=== PATIENT | male | born 1970 | race Caucasian/White ===

== ENCOUNTER 2018-09-13 00:58 | Emergency (ER) | payer OTHER, MEDICAID, SELFPAY ==
[2018-09-13 01:10] VITALS: BP 170/75; PULSE 90; RESP 18; TEMP 36.9; O2SAT 99; BMI 29.9
--- NOTE | 2018-09-13 01:28 | ED_ITS ---
HPI - Extremity Injury (Lower) General Chief Complaint: Wound/Laceration Stated Complaint: right leg roge, 7 in long, inch deep Time Seen by Provider: 09/13/18 01:22 Source: patient Mode of arrival: ambulatory Limitations: no limitations History of Present Illness HPI Narrative: Patient is a 47-year-old male here for evaluation of a cut to his right lower extremity. Patient states that it occurred approximately 4 hr prior to arrival here in the emergency department. He states that he was trying to hang a ceiling light when it fell in the corner of that cut his right leg. He states that his last tetanus shot was 5 years ago. He states that the reason he is here for 4 hr after the event was because he went to another hospital and sat there waiting room for 3 hr and got tired of waiting so left that emergency department came here. Review of Systems Musculoskeletal Denies myalgias and Denies arthralgias Integumentary/Breasts Comments: Cut to the right lower extremity Neurologic Comments: No numbness or tingling right lower extremity Hematologic/Lymphatic Denies easy bleeding and Denies easy bruising FOR[facility]LY [facility] Medical History Drug abuse (Acute) Surgical History No pertinent past surgical history (Acute) Exam Initial Vital Signs Initial Vital Signs: Vital Signs Temperature 98.5 F 09/13/18 01:10 Pulse Rate 90 09/13/18 01:10 Respiratory Rate 18 09/13/18 01:10 Blood Pressure 170/75 H 09/13/18 01:10 Pulse Oximetry 99 09/13/18 01:10 Const General: cooperative, healthy appearing, comfortable, well developed, well groomed and No acute distress Orientation: alert, awake and oriented x3 Resp Effort & Inspection: normal respiratory effort Cardio Rate: regular rate Pulses: dorsalis pedis present on the right Skin Other: Patient with a 10 cm laceration to the right lateral aspect of his lower extremity distal to the knee. No active bleeding. Neuro Other: Sensation intact to light touch right lower extremity Extrem Other: Right knee right ankle right foot unremarkable Psych Appearance: grossly normal and well kempt Procedures Laceration Repair Laceration 1: Site: lower extremity Side (If applicable): right Size (cm): 10 Description: linear Depth: involves muscle layer Local Anesthetic: lidocaine 1% and with epi Amount of anesthesia used (mL): 12 Pre-repair: wound explored and irrigated extensively Skin layer closed with: nylon Size (cm): 4-0 Number of sutures: 13 Technique: simple, interrupted Muscle layer closed with: chromic gut Size: 5-0 Number of sutures: 1 Technique: running Course Vital Signs - 8 hr 09/13/18 01:10 09/13/18 03:01 Temperature 98.5 F Pulse Rate 90 77 Respiratory Rate 18 18 Blood Pressure 170/75 H 134/81 Pulse Oximetry 99 98 MDM - Extremity Injury (Lower) MDM Narrative Medical decision making narrative: Patient is neurovascularly intact. Wound was irrigated extensively. He is up-to-date on tetanus. Wound was closed as described above. He was given care instructions. He was informed that there would be a scar. Will hold on any antibiotics for now. He is given return precautions. He expressed understanding and agreement with plan. Discharge Plan Departure Patient Disposition: Home Clinical Impression: Laceration Discharge Date/Time: 09/13/18 03:00 Interventions: ED Discharge Assessment Last Done: 09/13/18 03:01 Instructions: DI for Laceration Repair -- Simple Activity Restrictions/Additional Instructions: After approximately 24 hr you can shower like normal. He can use soap and water. Do not scrub the area but allow the water to run over the area. Keep it covered likely discussed. The stitches do need to be removed in 7-10 days. Return to the emergency department for any new symptoms, signs of infection such as redness or pain or drainage or purulent material. Call your primary care doctor for a follow-up.
[2018-09-13 03:01] VITALS: BP 134/81; PULSE 77; RESP 18; O2SAT 98
--- NOTE | 2018-09-14 15:17 | PC.NURSE ---
call backs, pt satisfied with care in er, no questions offered
== END 2018-09-13 03:00 | disposition home or self-care (01) ==
PROVIDERS: Emergency Provider Emergency Medicine
DX: S81.811A Laceration without foreign body, right lower leg, initial encounter (principal); W25.XXXA Contact with sharp glass, initial encounter
CPT/HCPCS: 12004; 12034; 99283; 99285